=== PATIENT | female | born 1945 | race Caucasian/White ===

== ENCOUNTER 2022-04-27 10:54 | Outpatient (CLI) | payer MEDICARE, BC, SELFPAY ==
[2022-04-27 13:12] LABS: Chloride* 99 mmol/L (96-114); Sodium* 140 mmol/L (135-149)
[2022-04-27 13:15] LABS: Blood Urea Nitrogen* 21 mg/dL (7-30); Carbon Dioxide* 34 mmol/L (20-32); Cholesterol* 232 mg/dL (90-199); Creatinine* 0.9 mg/dL (0.5-1.5); Estimated Glomerular Filt Rate 67 ml/min
[2022-04-27 13:16] LABS: Calcium* 9.5 mg/dL (8.4-10.6); Glucose* 96 mg/dL (60-115); HDL Cholesterol* 83 mg/dL (>=50); LDL Cholesterol Calculated 123 mg/dL (<100); Triglycerides* 129 mg/dL (40-149)
== END 2022-04-27 10:55 | disposition home or self-care (01) ==
PROVIDERS: PCP Internal Medicine; Visit Provider Internal Medicine
DX: Z00.00 Encounter for general adult medical examination without abnormal findings (principal); I10 Essential (primary) hypertension; E78.5 Hyperlipidemia, unspecified
CPT/HCPCS: 80048; 80061

== ENCOUNTER 2022-05-07 12:37 | Outpatient (CLI) | payer MEDICARE, BC, SELFPAY | END 2022-05-07 12:38 | disposition home or self-care (01) | LOC: RAD 12:38 | PROVIDERS: PCP Internal Medicine; Visit Provider Internal Medicine | DX: I34.0 Nonrheumatic mitral (valve) insufficiency (principal); I51.7 Cardiomegaly; I35.1 Nonrheumatic aortic (valve) insufficiency | CPT/HCPCS: 93306 ==

== ENCOUNTER 2022-12-13 12:36 | Outpatient (CLI) | payer MEDICARE, BC, SELFPAY ==
--- NOTE | 2022-12-13 13:00 | CRLHL7_ITS ---
For Patients: As a result of the Century Cures Act, medical imaging exams and procedure reports are released immediately into your electronic medical record. You may view this report before your referring provider. If you have questions, please contact your health care provider. BILATERAL SCREENING MAMMOGRAM WITH COMPUTER-AIDED DETECTION AND TOMOSYNTHESIS TECHNIQUE: CC and MLO views were obtained. These mammographic images have been obtained using full-field digital technique. These mammographic images were interpreted with the benefit of computer-aided detection. Breast tomosynthesis was used in this interpretation. COMPARISON FILM: 09/28/21, 08/06/20, 07/09/19. FINDINGS: There are scattered areas of fibroglandular density. IMPRESSION: There is no radiographic evidence for malignancy. ASSESSMENT: BI-RADS Category 1: Negative RECOMMENDATION: Routine screening mammogram in 1 year. A lay language report of this examination will be provided to the patient. LEE TILLMAN M.D. Diagnostic Radiologist [email or web address] Transcribed: 12/15/2022, 11:[address]/Dictated by: Lee Tillman MD @ 12/14/2022 12:43:00 PM (Electronically Signed)
== END 2022-12-13 12:37 | disposition home or self-care (01) ==
LOC: MAMMO 12:37
PROVIDERS: PCP Internal Medicine; Visit Provider Internal Medicine
DX: Z12.31 Encounter for screening mammogram for malignant neoplasm of breast (principal)
CPT/HCPCS: 77063; 77067

== ENCOUNTER 2022-12-30 09:36 | Outpatient (CLI) | payer MEDICARE, BC, SELFPAY ==
--- NOTE | 2022-12-30 09:11 | W.ANESCHARGE ---
Anesthesia Charges Start Date/Time Anesthesia Start Date: 12/30/22 Anesthesia Start Time: 10:52 Stop Date/Time Anesthesia Stop Date: 12/30/22 Anesthesia Stop Time: 11:40 Summary Extremes of Age - Over 70 or under 1: MDA
--- NOTE | 2022-12-30 11:47 | W.ANESCHARGE ---
Anesthesia Charges Start Date/Time Anesthesia Start Date: 12/30/22 Anesthesia Start Time: 10:52 Stop Date/Time Anesthesia Stop Date: 12/30/22 Anesthesia Stop Time: 11:40
== END 2022-12-30 09:37 | disposition home or self-care (01) ==
LOC: OP CLINIC 09:37
PROVIDERS: PCP Internal Medicine; Visit Provider Surgery
DX: Z12.11 Encounter for screening for malignant neoplasm of colon (principal); K63.5 Polyp of colon; Z86.010 Personal history of colon polyps
CPT/HCPCS: 45385; 811; 88305; 99100; J2704

== ENCOUNTER 2023-03-16 10:12 | Outpatient (CLI) | payer MEDICARE, BC, SELFPAY | END 2023-03-16 10:13 | disposition home or self-care (01) | PROVIDERS: PCP Internal Medicine; Visit Provider Internal Medicine | DX: Z01.818 Encounter for other preprocedural examination (principal) | CPT/HCPCS: 80048 ==

== ENCOUNTER 2023-03-23 07:14 | Day surgery (SDC) | payer MEDICARE, BC, SELFPAY ==
[2023-03-22] MEDS: LACTATED RINGERS 1000 ML 1,000 ML 100 ML IV (07:45)
[2023-03-23 07:36] VITALS: BMI 26.2
[2023-03-23 07:41] VITALS: BP 160/68; PULSE 72; RESP 16; TEMP 37; O2SAT 97
[2023-03-23] MEDS: SODIUM CHLORIDE 0.9 % (FLUSH) 10 ML SYRINGE IVF (07:45)
[2023-03-23] MEDS: MIDAZOLAM HCL 1 MG/ML inj IVP (07:50)
[2023-03-23] MEDS: fentaNYL 100 MCG/2 ML inj IVP (07:52)
--- NOTE | 2023-03-23 07:52 | SUR.PREOP ---
TIME?OUT:?0750 PT/RN/MDA?VERIFICATION?OF?SURGICAL?SITE,?PROCEDURE,?AND?CONSENT OBTAINED?PRIOR?TO?INVASIVE?PROCEDURE.
--- NOTE | 2023-03-23 07:57 | CRLHL7_ITS ---
For Patients: As a result of the Century Cures Act, medical imaging exams and procedure reports are released immediately into your electronic medical record. You may view this report before your referring provider. If you have questions, please contact your health care provider. INDICATION: Left great toe arthrodesis. TECHNIQUE: Fluoroscopically guided intraoperative evaluation of the left great toe. FINDINGS: Two portable spot images left great toe were obtained intraoperatively. Fusion of the 1st MTP joint. 20.2 seconds fluoroscopy time utilized. IMPRESSION: 20.2 seconds fluoroscopy time utilized intraoperatively. Dictated by Niko Vasquez MD @ 03/23/2023 10:06:06 AM (Electronically Signed)
[2023-03-23] MEDS: CEFAZOLIN 2 GM in 0.9 % SODIUM CHLORIDE Mini-bag 100 ML IVPB (08:10)
--- NOTE | 2023-03-23 08:14 | P.NB_ITS ---
Nerve Block Nerve Block Time Seen by Provider: 07:57 Date Seen: 03/23/23 Type of block requested by surgeon for post-operative analgesia: popliteal Side: left Time out performed: Yes Verification of patient name: Yes Verification of date of : Yes Site marking: site marked Name of person performing procedure: Pavel Continuous monitoring Was continuous monitoring of O2 sat, B/P, monitoring manager, recorded every 15 minutes?: Yes Procedure Checklist: sterile prep, needles and gloves Ultrasound guided. Images saved: Yes Medications given in 5ml increments after negative aspiration: Ropivicaine %: 0.5 mL: 20 Needle gauge: 22 Patient tolerated procedure well: Yes Additional comments: Needle noted adjacent to nerve Block Charges Block Charge (with Pro Fee): Sciatic Nerve Use of Ultrasound Machine for Block: Yes- US Guidance/pain block
--- NOTE | 2023-03-23 08:14 | P.NB_ITS ---
Nerve Block Nerve Block Time Seen by Provider: 07:57 Date Seen: 03/23/23 Type of block requested by surgeon for post-operative analgesia: adductor canal Side: left Time out performed: Yes Verification of patient name: Yes Verification of date of : Yes Site marking: site marked Name of person performing procedure: Pavel Continuous monitoring Was continuous monitoring of O2 sat, B/P, property assessment monitor, recorded every 15 minutes?: Yes Procedure Checklist: sterile prep, needles and gloves Ultrasound guided. Images saved: Yes Medications given in 5ml increments after negative aspiration: Ropivicaine %: 0.5 mL: 20 Needle gauge: 20 Patient tolerated procedure well: Yes Additional comments: Needle noted adjacent to nerve Block Charges Block Charge (with Pro Fee): Femoral Nerve Use of Ultrasound Machine for Block: Yes- US Guidance/pain block
--- NOTE | 2023-03-23 08:15 | W.ANESCHARGE ---
Anesthesia Charges Start Date/Time Anesthesia Start Date: 03/23/23 Anesthesia Start Time: 08:00 Stop Date/Time Anesthesia Stop Date: 03/23/23 Anesthesia Stop Time: 10:12 Summary Extremes of Age - Over 70 or under 1: MDA
--- NOTE | 2023-03-23 09:39 | P.ORPRC_ITS ---
Procedure Note Date of procedure: 03/23/23 Procedure: PREOPERATIVE DIAGNOSIS: 1. Right great toe MTP joint osteoarthrosis, primary, severe POSTOPERATIVE DIAGNOSIS: 1. Right great toe MTP joint osteoarthrosis, primary, severe PROCEDURE: 1. Right great toe MTP joint arthrodesis 2. 44578 - Intraoperative fluoroscopy use and interpretation. SURGEON: Martin Varner MD. BUSINESS MANAGER [employer]: Harlan JUÁREZ - Of note, an special education assistant was critical for this case to aid in patient positioning, tissue retraction, limb manipulation/positioning, digit manipulation/control, protection of critical structures, closure, and splinting. ANESTHESIA: Peripheral nerve block plus MAC anesthetic IMPLANTS: Arthrex 3.5 mm headless compression screw; Arthrex MTP joint arthrodesis plate and screws (3.0 mm locking and nonlocking) TOURNIQUET: 60 minute calf tourniquet at 250 torr COMPLICATIONS: None evident INDICATIONS: The patient is a pleasant 77-year-old female who has experienced right great toe MTP joint pain and dysfunction for number of months if not years. They have tried extensive nonoperative management without great success. Given the recalcitrant nature, surgery was indicated for an MTP joint fusion. DESCRIPTION OF PROCEDURE: Following a thorough discussion of risks, benefits, and alternatives consent was obtained and the operative digit(s) was marked. The patient was brought to the operating room and placed supine on the operating table after preoperative peripheral nerve block was administered and MAC anesthetic undertaken. 1 g IV Ancef was administered within 1 hr incision preoperatively. Appropriate time-out was performed identifying proper patient, site, procedure. The operative extremity/digit was prepped and draped in the appropriate sterile fashion using ChloraPrep. The limb was exsanguinated and the tourniquet inflated. A longitudinal incision was made over the dorsal aspect of the operative great toe. Sharp incision through skin and blunt dissection through subcutaneous tissue allowed us to identify and protect crossing neurological structures. EHL tendon was identified and retracted laterally. The MTP joint dorsal capsule was incised longitudinally and mobilized from the osseous structures. This was performed circumferentially with caution taken to stay adjacent bone. Once the collateral ligaments were divided and the joint mobility improved, the joint was able to be dislocated for preparation of the cup and cone reamers. We began by placing a guide pin into the metatarsal head and aiming retrograde. This correct sized Reamer was then utilized and gentle reaming through the cartilage surface but sparing the bone structure. Following this, similar pr ocess was performed with the proximal phalanx aiming the pin in an antegrade fashion. The Reamer was utilized for this portion in a similar matter penetrating through the chondral surface but sparing bone integrity. At this stage, a small guide pin was then used to fenestrate the bony surfaces into the medullary canal to help bleeding bone exposure/access. The bone was then aligned aiming for approximately 20-25 degrees of MTP joint extension (proximal phalanx relative to the metatarsal), and 10-15 degrees of valgus and neutral rotation. We ensured that in and IP joint extended state it did not contact a flat plate placed against the foot. However, when the IP joint was fully flex, it did indeed contact allowing at the proper mobility for toe off ambulation. Initially a K-wire was driven from proximal medial towards distal lateral for the holding power that it could provide. After securing the joint in the proper position, a 2nd K-wire/guide pin was placed from distal medial towards proximal lateral. This was confirmed on C-arm fluoroscopic imaging to be intraosseous and at the proper alignment. This was drilled and the headless compression screw placed with excellent compression performed across the joint surface. We then selected a plate and placed along the dorsal surface of the MTP joint. Initially compression screws were placed on either side after contouring the plate properly, followed by various locking screws to help secure the plate. Irrigation with normal saline was then performed. Tourniquet was released and hemostasis achieved. Closure performed with 2-0 Vicryl to reapproximate some of the synovial/capsular tissue to be a barrier between the hardware and the extensor tendon. Various layered closure was then performed including subcutaneous and subcuticular closure with 3-0 Vicryl and 4-0 Monocryl, respectively. Dressings were applied and a postop hard sole shoe was applied. PLAN: 1. Encourage elevation of the operative extremity. 2. Icing of the operative field as tolerated/needed 3. Acetaminophen and/or oxycodone as needed for pain control. 4. Follow up with PA visit in 10-14 days. Initially nonweightbearing operative extremity. After 10 days-2 weeks, then may begin weight-bearing through the heel in the postop hard sole shoe. She may need a walker in the short term.
[2023-03-23 10:11] VITALS: BP 151/104; PULSE 61; RESP 14; TEMP 36.5; O2SAT 94
[2023-03-23 10:15] VITALS: BP 155/80; PULSE 61; RESP 14; O2SAT 93
[2023-03-23 10:30] VITALS: BP 129/111; PULSE 64; RESP 14; O2SAT 95
[2023-03-23 10:45] VITALS: BP 161/68; PULSE 65; RESP 14; O2SAT 95
== END 2023-03-23 11:35 | disposition home or self-care (01) ==
PROVIDERS: PCP Internal Medicine; Visit Provider Orthopaedic Surgery Sports Medicine
PROC: (CPT 26860; principal; 2023-03-23 08:30)
DX: M19.071 Primary osteoarthritis, right ankle and foot (principal); G89.18 Other acute postprocedural pain
CPT/HCPCS: 28750; 01480; 64445; 64447; 73660; 76000; 76942; 97116; 97161; 99100; C1713; J0690; J2250; J2405; J2704; J2795; J3010; J7120

== ENCOUNTER 2023-06-02 09:54 | Outpatient (CLI) | payer MEDICARE, BC, SELFPAY | END 2023-06-02 09:55 | disposition home or self-care (01) | LOC: NFLDREF 06-05 10:59 | PROVIDERS: PCP Internal Medicine; Referring Provider Internal Medicine; Visit Provider Internal Medicine | DX: E78.5 Hyperlipidemia, unspecified (principal); I10 Essential (primary) hypertension | CPT/HCPCS: 80048; 80061 ==

== ENCOUNTER 2024-02-22 09:55 | Outpatient (CLI) | payer MEDICARE, BC, SELFPAY ==
--- OUTSIDE RECORDS SUMMARY | 2024-02-22 09:58 | XMS_ITS | Clinical Summary ---
Author Organization [facility] Address [place], [place] [address] Care Team Providers Care Resident Care Spec Name Role Phone Lizz Caldera MD Primary Care Provider [phone]- [phone] Allergies No known active allergies Medications Medication Sig Dispensed Refills Start Date End Date Status amitriptyline (ELAVIL) 10 mg tablet Take 10 mg by mouth once daily. 11/17/2022 Active dilTIAZem CR (TIAZAC; TAZTIA XT) 240 mg capsule TAKE ONE CAPSULE BY MOUTH ONE TIME DAILY* 01/16/2023 Active hydroCHLOROthiazide (HCTZ) 25 mg tablet TAKE ONE TABLET BY MOUTH ONE TIME DAILY* 01/30/2023 Active latanoprost (XALATAN) 0.005 % ophthalmic solution INSTILL 1 DROP IN EACH EYE AT BEDTIME 09/10/2022 Active PARoxetine (PAXIL) 30 mg tablet TAKE ONE TABLET BY MOUTH ONE TIME DAILY AT BEDTIME* 01/31/2023 Active simvastatin (ZOCOR) 20 mg tablet TAKE ONE TABLET BY MOUTH ONE TIME DAILY AT BEDTIME* 01/21/2023 Active aspirin 325 mg tablet Take by mouth. 04/27/2022 Active multivitamin capsule Take 1 Tablet by mouth. 04/27/2022 Active Active Problems Problem Noted Date Diagnosed Date Persistent insomnia 02/11/2023 02/11/2023 Osteoarthritis of right knee 02/11/202305/2023 Osteoarthritis of left foot 02/11/2023 06/05/2023 Major depressive disorder 02/11/20232022 Glaucoma 02/11/2023 02/11/2023 Chronic neck pain 02/11/2023 02/11/2023 Carpal tunnel syndrome 02/11/2023 3 Adenomatous colon polyp 02/11/2023 02/12/20 23 Mitral regurgitation 06/18/2022 Hyperlipidemia 07/29/2008 02/11/2023 Essential hypertension 07/07/2004 Overview: LW Onset: [id number] ; Hypertension Immunizations Name Administration Dates Next Due Influenza A (H1N1), Inactivated 09/17/2009 Influenza Virus, Unspecified 09/17/2009, 09/17/2009,07/23/2008,2007,07/19/2007,07/19/2007,06/20/2003,1 09/12/2001 Influenza, High-dose Inactivated 019,10/09/2018,06/17/2017,2015,07/10/2015,06/21/2014 Influenza, High-dose Quadriv alent Inactivated 06/22/2022,08/18/2021 Influenza, IIV4 06/26/2020, 9,10/09/2018,2016,07/27/2016,07/10/2015,06/21/2014,0 09/17/2009,07/23/2008,07/19/2007, 003 Influenza, Inactivated AIIV4 (Age 65+ Years) Preserv Free 06/26/2020 Pneumococcal Poly,23-Valent (Pneumovax) 06/21/2014 Pneumococcal conj 13-Valent (Prevnar 13) 10/06/2015 Td (Age >=7 Years) 03/06/2020,11/28/2002 Tdap 08/05/2009 Social History Tobacco Use Types Packs/Day Years Used Date Smoking Tobacco: Never Smokeless Tobacco: Never Tobacco Cessation:Counseling Given: Not Answered Alcohol Use Standard Drinks/Week Comments Not Currently 0 (1 standard drink = 0.6 oz pur e alcohol) Social Connections Answer Date Recorded Frequency of Communication with Friends and Fami ly Not on file 06/18/2022 Sex and Gender Information Value Date Recorded Sex Assigned at Not on file Gender Identity Not on file Sexual Orientation Not on file Obstetrics History Last Filed Vital Signs Vital Sign Reading Time Taken Comments Blood Pressure 137/71 02/11/2023 1:19 PM CDT Pulse 67 02/11/2023 1:19 PM CDT Temperature - - Respiratory Rate - - Oxygen Saturation 96% 02/11/2023 1:19 PM CDT Inhaled Oxygen Concentration - - Weight 61.3 kg (135 lb 3.2 oz) 02/11/2023 1:19 P M CDT Height - - Body Mass Index - - Plan of Treatment Health Maintenance Due Date Last Done Comments Depression screening for age 12+ 1959 BMI (ht and wt on same day) for age 18+ 11/29/1965 Hepatitis C screening for ag e 18-79 11/29/1965 Zoster (shingles) series for age 50+ (1 of 2) 11/29/1997 DEXA/DXA scan for age 65+ 11/29/2012 Medicare Wellness for age 65+ 11/29/2012 COVID-19 vaccine series ( season) 2023 06/22/2022, 07/28/2021, 11/18/2020, Additional history exists Influenza for age 65+ 05/06/2024 06/22/2022 , 08/18/2021, 06/26/2020, Additional history exists Tetanus booster 03/06/2030 03/06/2020, 1209/2008, 11/28/2002 Tdap Completed 08/05/2009 Pneumococcal series for age 65+ Completed 6, 06/21/2014 Care Teams Resident Care Spec Relationship Specialty Start Date End Date Lizz Caldera MD [address] [place] [address] PCP - General Internal Medicine 06/18/22
--- OUTSIDE RECORDS SUMMARY | 2024-02-22 09:58 | XMS_ITS | Clinical Summary ---
Author Organization [facility] Address [address] [address] Care Team Providers Care Micro Lab Analyst Name Role Phone Lizz Caldera MD Primary Care Provider [phone]- [phone] Source Comments You are receiving this document as you are listed as the primary care provider,follow-up provider, or the patient has been referred to you for consultation.This is in compliance with the Medicare and[facility] EHR Incentive Program,which states Providers who transition their patient to another setting of careor provider of care or refers their patient to another provider of care shouldprovide summary care record for each transition of care or referral. [facility] Allergies No known active allergies Medications Medication Sig Dispensed Refills Start Date End Date Status aspirin 325 MG tablet Take 1 tablet by mouth daily (every 24 hours). 13 06/08/2006 Active UNKNOWN MEDICATION LW Comment:hydrochlorot hiazide 90 01/02/2004 Active simvastatin (AKA ZOCOR) 20 MG tablet Take 1 tablet by mouth every evening. LW Addl Instr:Indicated for: High Cholesterol 90 1 01/08/2010 Active hydrochlorothiazide (AKA HYDRODIURIL) 25 MG tablet Take 1 tablet by mouth daily (every 24 hours). LW Addl Instr:Indicated for: High Blood Pressure 90 06/22/2010 Active diltiazem CD coated beads (CARDIZEM CD) 180 MG 24 hour release capsule Take 1 capsule by mouth daily (every 24 hours). 90 06/22/2010 Active UNKNOWN MEDICATION Indications: PN: 09/17/2009 Active sertraline (AKA ZOLOFT) 50 MG tablet Take 1 tablet by mouth daily (every 24 hours). 90 3 11/05/2009 Active amitriptyline (AKA ELAVIL) 10 MG tablet Take 1 tablet by mouth daily (every 24 hours). 90 3 09/29/2009 Active Active Problems Problem Noted Date Diagnosed Date Hyperlipidemia 07/29/2008 Essential hypertension 07/07/2004 Overview: LW Onset: ; Hypertension Resolved Problems Problem Noted Date Diagnosed Date Resolved Date Anxiety state 07/07/2004 11/20/2005 Overview: LW Modifier: with depression LW Onset: ; Anxiety NOS Immunizations Name Administration Dates Next Due Flu Vac Preserv Free (3+yrs) 09/17/2009,07/23/20 08,07/19/2007 H1n1 Miv Sanofi 3+ Yr (Injected) 09/17/2009 Influenza, Unspecified Formulation 06/20/2003, TDAP (BOOSTRIX) 08/05/2009 Td 11/28/2002 Family History Medical History Relation Name Comments Cancer, Breast Negative Family History Cancer, Colon Negative Family History Cancer, Endometrial Negative Family History Cancer, Ovary Negative Family History Social History Tobacco Use Types Packs/Day Years Used Date Smoking Tobacco: Never Sex and Gender Information Value Date Recorded Sex Assigned at Not on file Gender Identity Not on file Sexual Orientation Not on file Last Filed Vital Signs Vital Sign Reading Time Taken Comments Blood Pressure 140/76 09/17/2009 10:41 AM LAST PATTERN GRADER Pulse 62 09/17/2009 10:41 AM LAST PATTERN GRADER Temperature - - Respiratory Rate - - Oxygen Saturation - - Inhaled Oxygen Concentration - - Weight 61.7 kg (135 lb 15.7 oz) 010 10:41 AM LAST PATTERN GRADER C: 61.7kg Height 156.8 cm (5' 1.75) 09/17/2009 1 0:41 AM LAST PATTERN GRADER C: 156.8cm Body Mass Index 25.07 09/17/2009 10:41 AM LAST PATTERN GRADER Plan of Treatment Health Maintenance Due Date Last Done Comments Hep C Screening (Preventive Services) 1945 Medicare Annual Wellness Visit 1945 Zoster/Shingles (1 of 2) 11/29/1997 Colonoscopy 11/11/2009 11/10/2009 Dexa 11/29/2012 Pneumococcal 65+ Yrs (1 - PCV) 11/29/2012 DTaP/Tdap/Td (2 - Tdap) 08/05/2019 08/05/2009, 11/28 COVID-19 Vaccine ( season) 2023 Influenza (Season Ended) 2024 010, 07/23/2008, 07/19/2007, Additional history exists Cholesterol Discontinued 09/17/2009, 11/03, 07/23/2008, Additional history exists HepA Aged Out No longer eligi ble based on patient's age to complete this topic HepB Aged Out No longer eligi ble based on patient's age to complete this topic Hib Aged Out No longer eligi ble based on patient's age to complete this topic IPV (Polio) Aged Out No longer eligi ble based on patient's age to complete this topic MCV4 Aged Out No longer eligi ble based on patient's age to complete this topic Procedures Procedure Name Priority Date/Time Associated Diagnosis Comments ENDOSCOPY, COLON, SCREENING/DIAGNOSTI C Routine 11/10/2009 2:55 PM LAST PATTERN GRADER LIPID PANEL & DIRECT LDL (IF NEEDED) Routine 09/17/2009 11:35 AM LAST PATTERN GRADER from Last 3 Months or Most Recently Relevant to Health Maintenance Results * Endoscopy, colon, diagnostic (11/10/2009 2:55 PM LAST PATTERN GRADER) User Conversion PN GI PROCEDURE RICCI FLETCHER HP CONVERSION * (ABNORMAL) Lipid Panel and Direct LDL(If Needed) (09/17/2009 11:35 AM LAST PATTERN GRADER) Hours Fasting 12.0 Hours HP CONVERSION Cholesterol/HDL Ratio Screen 2.7 No normal range HP CONVERSION Cholesterol 232(H) <200 mg/dL HP CONVERSION HDL Cholesterol 85 >40 mg/dL HP CONVERSION Triglycerides 76 0 - 149 mg/dL HP CONVERSION LDL Calculated 132(H) 0 - 130 mg/dL HP CONVERSION Comment: 09/17/2009 11:3 5 AM LAST PATTERN GRADER Ro Mena MD LAB_1 HP CONVERSION from Last 3 Months or Most Recently Relevant to Health Maintenance Care Teams Micro Lab Analyst Relationship Specialty Start Date End Date Lizz Caldera MD [address] [place] [id number] PCP - General 12/05/10
--- NOTE | 2024-02-22 11:30 | CRLHL7_ITS ---
For Patients: As a result of the Century Cures Act, medical imaging exams and procedure reports are released immediately into your electronic medical record. You may view this report before your referring provider. If you have questions, please contact your health care provider. BILATERAL SCREENING MAMMOGRAM WITH COMPUTER-AIDED DETECTION AND TOMOSYNTHESIS TECHNIQUE: CC and MLO views were obtained. These mammographic images have been obtained using full-field digital technique. These mammographic images were interpreted with the benefit of computer-aided detection. Breast tomosynthesis was used in this interpretation. COMPARISON FILM: 12/13/22, 09/28/21, 08/06/20. FINDINGS: The breasts are heterogeneously dense, which may obscure small masses. IMPRESSION: There is no radiographic evidence for malignancy. ASSESSMENT: BI-RADS Category 1: Negative RECOMMENDATION: Routine screening mammogram in 1 year. A lay language report of this examination will be provided to the patient. LEE TILLMAN M.D. Diagnostic Radiologist [email or web address] Transcribed: 2:[address]/Dictated by: Lee Tillman MD @ 02/22/2024 12:12:00 PM (Electronically Signed)
== END 2024-02-22 09:56 | disposition home or self-care (01) ==
LOC: MAMMO 09:56
PROVIDERS: PCP Internal Medicine; Visit Provider Internal Medicine
DX: Z12.31 Encounter for screening mammogram for malignant neoplasm of breast (principal); R92.2 Inconclusive mammogram
CPT/HCPCS: 77063; 77067

== ENCOUNTER 2024-08-09 09:32 | Outpatient (CLI) | payer MEDICARE, BC, SELFPAY ==
--- OUTSIDE RECORDS SUMMARY | 2024-08-09 13:57 | XMS_ITS | Clinical Summary ---
[facility] Address [address] [address] Care Team Providers Care Rim Turning Finisher Name Role Phone Lizz Caldera MD Primary Care Provider [phone]- [phone] Source Comments You are receiving this document as you are listed as the primary care provider,follow-up provider, or the patient has been referred to you for consultation.This is in compliance with the Medicare and[facility] EHR Incentive Program,which states Providers who transition their patient to another setting of careor provider of care or refers their patient to another provider of care shouldprovide summary care record for each transition of care or referral. [facility] Allergies No known active allergies Medications Medication [...] Diagnosed Date Hyperlipidemia 07/29/2008 Essential hypertension 07/07/2004 Overview (04/27/2017): LW Onset: ; Hypertension Resolved Problems Problem Noted Date Diagnosed Date Resolved Date Anxiety state 07/07/2004 11/20/2005 Overview (04/27/2017): LW Modifier: with depression LW Onset: ; [...] Comments Blood Pressure 140/76 09/17/2009 10:41 AM TIPPLE SUPERVISOR Pulse 62 09/17/2009 10:41 AM TIPPLE SUPERVISOR Temperature - - Respiratory Rate - - Oxygen Saturation - - Inhaled Oxygen Concentration - - Weight 61.7 kg (135 lb 15.7 oz) 010 10:41 AM TIPPLE SUPERVISOR C: 61.7kg Height 156.8 cm (5' 1.75) 09/17/2009 1 0:41 AM TIPPLE SUPERVISOR C: 156.8cm Body Mass Index 25.07 09/17/2009 10:41 AM TIPPLE SUPERVISOR Plan of Treatment Health Maintenance Due Date Last Done Comments Hep C Screening (Preventive Services) 1945 Medicare Annual Wellness Visit 1945 Zoster/Shingles (1 of 2) 11/29/1997 Colonoscopy 11/11/2009 11/10/2009 Dexa 11/29/2012 Pneumococcal 65+ Yrs (1 - PCV) 11/29/2012 DTaP/Tdap/Td (2 - Tdap) 08/05/2019 08/05/2009, 11/28 RSV (1 - 1-dose 75+ series) 11/29/2022 COVID-19 Vaccine ( season) 2024 Influenza (#1) 2024 09/17/2009, 07/06, 07/19/2007, Additional history exists Cholesterol Discontinued 09/17/2009, [...] on patient's age to complete this topic Infant RSV Aged Out No longer eligi ble based on patient's age to complete this topic MCV4 Aged Out No longer eligi ble based on patient's age to complete this topic Procedures Procedure Name Priority Date/Time Associated Diagnosis Comments ENDOSCOPY, COLON, SCREENING/DIAGNOSTI C Routine 11/10/2009 2:55 PM TIPPLE SUPERVISOR LIPID PANEL & DIRECT LDL (IF NEEDED) Routine 09/17/2009 11:35 AM TIPPLE SUPERVISOR from Last 3 Months or Most Recently Relevant to Health Maintenance Results * Endoscopy, colon, diagnostic (11/10/2009 2:55 PM TIPPLE SUPERVISOR) Anatomical Region Laterality Modality Other User Conversion ET GI PROCEDURE ORDE RABTRACY * (ABNORMAL) Lipid Panel and Direct LDL(If Needed) (09/17/2009 11:35 AM TIPPLE SUPERVISOR) Hours Fasting 12.0 Hours HP CONVERSION Cholesterol/HDL Ratio Screen 2.7 No normal range HP CONVERSION Cholesterol 232(H) <200 mg/dL HP CONVERSION HDL Cholesterol 85 >40 mg/dL HP CONVERSION Triglycerides 76 0 - 149 mg/dL HP CONVERSION LDL Calculated 132(H) 0 - 130 mg/dL HP CONVERSION Comment: 09/17/2009 11:3 5 AM TIPPLE SUPERVISOR Ro Balkissoon MD LAB_1 HP CONVERSION from Last 3 Months or Most Recently Relevant to Health Maintenance Care Teams Rim Turning Finisher Relationship Specialty Start Date End Date Lizz Caldera MD [address] [place] [id number] PCP - General 12/05/10
--- OUTSIDE RECORDS SUMMARY | 2024-08-09 13:57 | XMS_ITS | Clinical Summary ---
Author Organization [facility] Address [place], [place] [address] Care Team Providers Care Shop Foreman Name Role Phone Lizz Caldera MD Primary Care Provider [phone] Allergies No known active allergies Medications Medication [...] 06/18/2022 Hyperlipidemia 07/29/2008 02/11/2023 Essential hypertension 07/07/2004 Overview (02/11/2023): LW Onset: [id number] ; Hypertension Immunizations Name Administration Dates Next [...] 11/29/2012 Medicare Wellness for age 65+ 11/29/2012 RSV vaccine for adults or (1 - 1-dose 75+ series) 11/29/2022 COVID-19 vaccine series ( season) 2024 06/22/2022, 07/28/2021, 11/18/2020, Additional history exists Influenza for age 65+ 05/06/2024 06/22/2022 , 08/18/2021, 06/26/2020, Additional history exists Tetanus booster 03/06/2030 03/06/2020, 12/09/2008, 11/28/2002 Tdap Completed 08/05/2009 Pneumococcal series for age 65+ Completed 6, 06/21/2014 Care Teams Shop Foreman Relationship Specialty Start Date End Date Lizz Caldera MD [address] [place] [address] PCP - General Internal Medicine 06/18/22
== END 2024-08-09 09:33 | disposition home or self-care (01) ==
PROVIDERS: PCP Internal Medicine; Visit Provider Internal Medicine
DX: I10 Essential (primary) hypertension (principal); E78.5 Hyperlipidemia, unspecified
CPT/HCPCS: 80048; 80061

== ENCOUNTER 2025-07-30 09:27 | Outpatient (CLI) | payer MEDICARE, BC, SELFPAY | END 2025-07-30 09:28 | disposition home or self-care (01) | LOC: NFLDREF 08-05 03:52 | PROVIDERS: PCP Internal Medicine; Referring Provider Internal Medicine; Visit Provider Internal Medicine | DX: I10 Essential (primary) hypertension (principal); E78.5 Hyperlipidemia, unspecified | CPT/HCPCS: 80048; 80061 ==